=== PATIENT | female | born 1955 | race Caucasian/White ===

== ENCOUNTER 2018-01-09 07:02 | Day surgery (SDC) | payer BC ==
[~2018-01-09 07:02] MED LIST: Cefuroxime 10 MG/ML SYRINGE EYELF SCH; Lidocaine 1% PF 2 ML SDV INJECT SCH; Pilocarpine 4% Ophth Soln 15 ML Bot EYELF SCH; Polymyxin B/Trimethoprim 10 ML Bottle EYELF SCH
[2018-01-09] MEDS: Ofloxacin 0.3% Ophth Soln 5 ML Bottle EYELF SCH ×3 (07:28→08:56)
[2018-01-09] MEDS: Brimonidine 0.2% Ophth Soln 5 ML Bottle EYELF SCH ×3 (07:33→08:56)
[2018-01-09] MEDS: Phenylephrine 2.5% Ophth Soln 2 ML Bot EYELF SCH ×6 (07:38→08:39)
--- NOTE | 2018-01-09 07:40 | PCM.PREANE ---
Preanesthetic Assessment - Anesthesia/Transfusion/Family Hx Anesthesia History: Prior Anesthesia Reaction Family History of Anesthesia Reaction: No Transfusion History: No Prior Transfusion(s) Type of Transfusion Reactions: Reports: Unknown - Review of Systems General: No Symptoms Pulmonary: No Symptoms Cardiovascular: Dyspnea on Exertion Gastrointestinal: No Symptoms Neurological: No Symptoms Other: Reports: Diabetes, Anxiety - Physical Assessment NPO Status Date: 01/08/18 NPO Status Time: 00:00 Pulse: 68 O2 Sat by Pulse Oximetry: 94 Respiratory Rate: 16 Blood Pressure: 139/81 Temperature: 36.8 C Height: 1.6 m Weight: 97.522 kg ASA Class: 2 Mental Status: Alert & Oriented x3 Airway Class: Mallampati = 3 Dentition: Reports: Normal Dentition Thyro-Mental Finger Breadths: 2 Mouth Opening Finger Breadths: 2 ROM/Head Extension: Full Lungs: Clear to Auscultation, Normal Respiratory Effort Cardiovascular: Regular Rate, Regular Rhythm - Allergies Allergies/Adverse Reactions: Allergies Allergy/AdvReac Type Severity Reaction Status Date / Time clindamycin Allergy Hives Verified 01/08/18 13:12 - Blood Blood Available: No Product(s) Available: None - Anesthesia Plan Pre-Op Medication Ordered: None - Acknowledgements Anesthesia Type Planned: MAC Pt an Appropriate Candidate for the Planned Anesthesia: Yes Alternatives and Risks of Anesthesia Discussed w Pt/Guardian: Yes Pt/Guardian Understands and Agrees with Anesthesia Plan: Yes PreAnesthesia Questionnaire Other HEENT History: glasses Respiratory History: Reports: Asthma Gastrointestinal History: Reports: GERD Other Genitourinary History: surgery on bladder a long time ago Other OB/BYN History: menopausal facial flushing Neurological History: Reports: Migraines Other Neuro History: insomnia Other Psychiatric History: INSOMNIA Endocrine/Metabolic History: Reports: Diabetes, Type II Other Dermatologic History: verruca vulgaris, multiple benign melanocytic nevi, neoplasm of skin, senile angiomas, skin tags, seborrhecic keratosis, sebaceous hyperplasia, lentigo - Past Surgical History GI Surgical History: Reports: Hernia Repair/Other Musculoskeletal Surgical History: Reports: Knee Replacement - HOME MEDS Home Medications: Home Meds Budesonide/Formoterol [Symbicort 160-4.5 Mcg Inhaler] 10.2 gm IH BEDTIME [History] Esomeprazole [NexIUM] 40 mg PO DAILY 06/05/16 [History] Losartan/Hydrochlorothiazide [Losartan-HCTZ 50-12.5 MG] 1 tab PO DAILY 06/05/16 [History] Montelukast [Singulair] 10 mg PO DAILY 06/05/16 [History] Rosuvastatin [Crestor] 1 tab PO DAILY 06/05/16 [History] Sulfamethoxazole/Trimethoprim [Bactrim Ds Tablet] 1 tab PO DAILY 06/05/16 [ History] metFORMIN [Glucophage XR] 500 mg PO BID 06/05/16 [History] Nitrofurantoin Monohyd/M-Cryst [Macrobid 100 mg Capsule] 100 mg PO DAILY [History] - CURRENT (IN HOUSE) MEDS Current Meds: Current Medications Brimonidine Tartrate (Alphagan 0.2% Ophth Soln) 0 ml EYELF ASDIRECTED EMELIA Stop: 01/09/18 18:00 Cefuroxime Sodium (Zinacef) 0 mg EYELF ASDIRECTED EMELIA Stop: 01/09/18 18:00 Lidocaine HCl (Xylocaine-Mpf 1%) 0 ml INJECT ASDIRECTED EMELIA Stop: 01/09/18 18:00 Ofloxacin (Ocuflox 0.3% Ophth Soln) 0 ml EYELF ASDIRECTED EMELIA Stop: 01/09/18 18:00 Phenylephrine HCl (Karson-Synephrine 2.5% Ophth Soln) 0 ml EYELF ASDIRECTED EMELIA Stop: 01/09/18 18:00 Pilocarpine HCl (Pilocar 4% Ophth Soln) 0 ml EYELF ASDIRECTED EMELIA Stop: 01/09/18 18:00 Tetracaine HCl (Tetracaine 0.5% Steri-Unit Teri) 0 ml EYELF ASDIRECTED EMELIA Stop: 01/09/18 18:00 Tropicamide (Mydriacyl 1% Ophth Soln) 0 ml EYELF ASDIRECTED EMELIA Stop: 01/09/18 18:00
[2018-01-09] MEDS: Tropicamide 1% Ophth Soln 15 ML Bottle EYELF SCH ×3 (07:50→08:14)
[2018-01-09] MEDS: Tetracaine HCl/PF 0.5% 4 ML Bottle EYELF SCH ×2 (08:20→08:46)
--- NOTE | 2018-01-09 09:04 | PCM48HPAN ---
Post Anesthesia Note - EVALUATION WITHIN 48HRS OF ANESTHETIC Vital Signs in Normal Range: Yes Patient Participated in Evaluation: Yes Respiratory Function Stable: Yes Airway Patent: Yes Cardiovascular Function Stable: Yes Hydration Status Stable: Yes Pain Control Satisfactory: Yes Nausea and Vomiting Control Satisfactory: Yes Mental Status Recovered: Yes Pulse Rate: 68 Resp Rate: 16 Temperature: 36.8 C Blood Pressure: 139/81 - COMMENTS/OBSERVATIONS Free Text/Narrative:: no anesthesia complications noted
[2018-01-09 09:21] VITALS: BP 155/90
== END 2018-01-09 09:10 | disposition home or self-care (01) ==
LOC: JD.SDS 07:02
PROVIDERS: ATTEND Ophthalmology
DX: H25.813 Combined forms of age-related cataract, bilateral (principal); E11.36 Type 2 diabetes mellitus with diabetic cataract; H35.343 Macular cyst, hole, or pseudohole, bilateral; H35.073 Retinal telangiectasis, bilateral; H02.831 Dermatochalasis of right upper eyelid; H16.103 Unspecified superficial keratitis, bilateral; H16.223 Keratoconjunctivitis sicca, not specified as Sjogren's, bilateral; J45.909 Unspecified asthma, uncomplicated; K21.9 Gastro-esophageal reflux disease without esophagitis; G43.909 Migraine, unspecified, not intractable, without status migrainosus; G47.00 Insomnia, unspecified; E78.00 Pure hypercholesterolemia, unspecified; M19.90 Unspecified osteoarthritis, unspecified site; I10 Essential (primary) hypertension; Z79.84 Long term (current) use of oral hypoglycemic drugs; Z79.899 Other long term (current) drug therapy; Z88.1 Allergy status to other antibiotic agents
CPT/HCPCS: 66984; C1780; J0697; A9270-GY; J2001

== ENCOUNTER 2021-02-04 08:22 | Emergency (ER) | payer OTHER ==
[2021-02-04 08:31] VITALS: BP 160/84; PULSE 76
--- NOTE | 2021-02-04 08:44 | EDM.PDOC ---
ED HPI GENERAL MEDICAL PROBLEM - General Chief Complaint: Abdominal Pain Stated Complaint: ABDOMINAL PAIN Time Seen by Provider: 02/04/21 08:40 Source of Information: Reports: Patient History Limitations: Reports: No Limitations - History of Present Illness INITIAL COMMENTS - FREE TEXT/NARRATIVE: 65-year-old female presents to the ED for evaluation of worsening left lower quadrant abdominal pain. She states she was diagnosed with diverticulitis of the sigmoid colon on January 29. Initially was seen at the walk-in clinic where labs revealed an elevated white count and apparently CRP. She was sent to the ED where she had a CT of the abdomen and pelvis performed with oral and IV contrast and confirmed diagnosis of diverticulitis. She was treated with oral Augmentin 875/1 2 5 mg tablets twice daily for 1 week and she has 2 tablets left. No noted fever or chills. Gradually worsening pain left lower quadrant worse with moving coughing getting in and out of bed etc. No problems voiding. Stools have been soft and normal without blood. She reports she is usually constipated but does not have diarrhea from the Augmentin. She has a history of diverticulitis with at least 1 previous event several years ago. I have reviewed CT scan that was done at our hospital on the January 29. She has numerous diverticuli within the sigmoid colon. There was inflammatory change being seen around these diverticuli compatible with diverticulitis. No focal fluid collections were seen to indicate an abscess. Visualized lung bases show nothing acute. Liver contains no focal parenchymal abnormality. Spleen size was normal.'s prior stomach surgery identified. Small to moderate size hiatal hernia is also appreciated. Adrenal glands show no nodules. Pancreas shows no discrete abnormality surgical clips are noted from previous cholecystectomy. Abdominal aorta shows mild atherosclerotic calcification without aneurysm. No retroperitoneal adenopathy is seen. Kidneys show symmetric contrast enhancement. 3 very small cortical cysts are seen within the left kidney. Small abnormality which appears to be solid is seen within the left kidney measuring 9 mm. Delayed images show contrast excretion to both ureters as well as the bladder. Fat-containing anterior abdominal wall hernia is seen superiorly. Directly below the hernia there is evidence of graft material within the anterior abdominal wall appendix was not visualized. Onset: Gradual Onset Date: 01/27/21 Duration: Day(s):, Getting Worse (Was improving but became worse left lower quadrant over the last 2 days in spite of antibiotic therapy with Augmentin 875/1 two 5 mg twice daily for the last 6 days.) Location: Reports: Abdomen (Left lower quadrant of the abdomen with no radiation into her back) Quality: Reports: Ache, Other (Occasionally sharp and stabbing) Severity: Moderate Improves with: Reports: Rest Worsens with: Reports: Other (Worse with walking) Context: Reports: Other (Diagnosed with diverticulitis sigmoid colon on January 29.). Denies: Activity ( getting in and every vehicle or bed.), Exercise, Lifting, Sick Contact, Trauma Associated Symptoms: Denies: Confusion, Chest Pain, Cough, cough w sputum, Diaphoresis, Fever/Chills, Headaches, Loss of Appetite, Malaise, Nausea/Vomiting, Rash, Seizure, Shortness of Breath, Syncope, Weakness Treatments [employer]: Reports: Acetaminophen Left Lower Abdominal Pain Score (Numeric/FACES): 7 - Related Data Allergies Allergy/AdvReac Type Severity Reaction Status Date / Time clindamycin Allergy Hives Verified 02/04/21 08:31 Home Meds: Home Meds Montelukast [Singulair] 10 mg PO DAILY 06/05/16 [History] Rosuvastatin [Crestor] 1 tab PO DAILY 06/05/16 [History] Levofloxacin [Levaquin] 500 mg PO DAILY #7 tablet 02/04/21 [Rx] metroNIDAZOLE [Flagyl] 500 mg PO Q8H #21 tab 02/04/21 [Rx] Past Medical History Other HEENT History: glasses Cardiovascular History: Reports: High Cholesterol Respiratory History: Reports: Asthma Gastrointestinal History: Reports: GERD Other Genitourinary History: surgery on bladder a long time ago Other TARIFF COUNSEL History: menopausal facial flushing Neurological History: Reports: Migraines Other Neuro History: insomnia Other Psychiatric History: INSOMNIA Endocrine/Metabolic History: Reports: Diabetes, Type II Other Dermatologic History: verruca vulgaris, multiple benign melanocytic nevi, neoplasm of skin, senile angiomas, skin tags, seborrhecic keratosis, sebaceous hyperplasia, lentigo - Past Surgical History GI Surgical History: Reports: Hernia Repair/Other Musculoskeletal Surgical History: Reports: Knee Replacement Social & Family History - Caffeine Use Caffeine Use: Reports: None - Living Situation & Occupation Living situation: Reports: Occupation: Employed ED ROS GENERAL - Review of Systems Review Of Systems: See Below Constitutional: Reports: Decreased Appetite. Denies: Fever, Chills, Malaise, Weakness, Fatigue, Weight Loss HEENT: Reports: Glasses, Other (Chronic allergic rhinitis) Respiratory: Reports: No Symptoms Cardiovascular: Reports: No Symptoms Endocrine: Reports: Fatigue GI/Abdominal: Reports: Abdominal Pain, Constipation (See history of present illness intermittent problems with constipation). Denies: Nausea : Reports: Frequency, Incontinence (Occasional stress-induced) Musculoskeletal: Reports: Neck Pain (Occasional neck and shoulder pain), Back Pain, Joint Pain Skin: Reports: No Symptoms Neurological: Reports: No Symptoms Psychiatric: Reports: No Symptoms Hematologic/Lymphatic: Reports: No Symptoms Immunologic: Reports: No Symptoms ED EXAM, GI/ABD - Physical Exam Exam: See Below Exam Limited By: No Limitations General Appearance: Alert, WD/WN, No Apparent Distress, Other (Temperature is 36.9 degrees with a heart rate of 76 and sinus respiratory to 16 with O2 sats of 98% room air. BP 160/84.) Eyes: Bilateral: Normal Appearance (No scleral icterus or blepharal pallor.) Throat/Mouth: Normal Inspection, Normal Lips, Normal Oropharynx Head: Atraumatic, Normocephalic Neck: Normal Inspection, Supple, Non-Tender, Full Range of Motion. No: Carotid Bruit, Lymphadenopathy (L), Lymphadenopathy (R) Respiratory/Chest: No Respiratory Distress, Lungs Clear, Normal Breath Sounds, No Accessory Muscle Use Cardiovascular: Normal Peripheral Pulses, Regular Rate, Rhythm, No Edema, No Gallop, No Murmur, No Rub GI/Abdominal Exam: Normal Bowel Sounds, Soft, Guarding (Just to the left of), Rebound ( midline suprapubically and left lower quadrant of the abdomen), Tender (Very tender to palpation left lower quadrant over the sigmoid colon with guarding and mild rebound tenderness.), Hernia (Has a ventral hernia.), Other (Multiple scars. She has had a Cuate fundoplication. She has had a laparoscopic assisted cholecystectomy. She has had 3 6 C-sections done in the classical scars with abdominal wall hernia.). No: Non-Tender, Rigid Back Exam: Normal Inspection, Other. No: CVA Tenderness (L) (Increased lordotic curvature lumbar spine), CVA Tenderness (R) Extremities: Normal Inspection, Normal Range of Motion, Non-Tender, No Pedal Edema Neurological: Alert, Oriented, CN II-XII Intact, Normal Cognition Psychiatric: Normal Affect, Normal Mood Skin Exam: Warm, Dry, Intact, Normal Color, No Rash Course - Vital Signs Last Recorded V/S: Last Vital Signs Temp 36.9 C 02/04/21 08:29 Pulse 76 02/04/21 08:29 Resp 16 02/04/21 08:29 BP 160/84 H 02/04/21 08:29 Pulse Ox 98 02/04/21 08:29 - Orders/Labs/Meds Orders: Active Orders 24 hr Category Date Time Status Ketorolac [Toradol] Med 02/04/21 10:30 Active 30 mg IVPUSH ONETIME Sodium Chloride 0.9% [Normal Saline] 1,000 ml Med 02/04/21 09:00 Active IV ASDIRECTED Medication Orders Sodium Chloride (Normal Saline) 1,000 mls @ 125 mls/hr IV ASDIRECTED EMELIA Last Admin: 02/04/21 09:05 Dose: 125 mls/hr Documented by: SHAD Ketorolac Tromethamine (Ketorolac 30 Mg/Ml Sdv) 30 mg IVPUSH ONETIME EMELIA Labs: Laboratory Tests 02/04/21 02/04/21 02/04/21 Range/Units 09:13 09:13 09:13 WBC 7.32 (3.98-10.04) K/mm3 RBC 4.40 (3.98-5.22) M/mm3 Hgb 13.5 (11.2-15.7) gm/dl Hct 41.2 (34.1-44.9) % MCV 93.6 D (79.4-94.8) fl MCH 30.7 (25.6-32.2) pg MCHC 32.8 (32.2-35.5) g/dl RDW Std Deviation 42.1 (36.4-46.3) fL Plt Count 314 (182-369) K/mm3 MPV 9.2 L (9.4-12.3) fl Neut % (Auto) 54.4 (34.0-71.1) % Lymph % (Auto) 29.8 (19.3-51.7) % [place] % (Auto) 13.5 H (4.7-12.5) % Eos % (Auto) 1.2 (0.7-5.8) Baso % (Auto) 0.4 (0.1-1.2) % Neut # (Auto) 3.98 (1.56-6.13) K/mm3 Lymph # (Auto) 2.18 (1.18-3.74) K/mm3 [place] # (Auto) 0.99 H (0.24-0.36) K/mm3 Eos # (Auto) 0.09 (0.04-0.36) K/mm3 Baso # (Auto) 0.03 (0.01-0.08) K/mm3 Sodium 142 (136-145) mEq/L Potassium 4.0 (3.5-5.1) mEq/L Chloride 110 H (98-107) mEq/L Carbon Dioxide 28 (21-32) mEq/L Anion Gap 8.0 (5-15) BUN 9 (7-18) mg/dL Creatinine 0.8 (0.55-1.02) mg/dL Est Cr Clr Drug Dosing 59.54 mL/min Estimated GFR (MDRD) > 60 (>60) mL/min BUN/Creatinine Ratio 11.3 L (14-18) Glucose 103 H (70-99) mg/dL Lactic Acid 1.2 (0.4-2.0) mmol/L Calcium 8.8 (8.5-10.1) mg/dL Magnesium 1.9 (1.8-2.4) mg/dL Total Bilirubin 0.3 (0.2-1.0) mg/dL AST 25 (15-37) U/L ALT 34 (14-59) U/L Alkaline Phosphatase 65 (46-116) U/L C-Reactive Protein < 0.2 (<1.0) mg/dL Total Protein 6.4 (6.4-8.2) g/dl Albumin 2.9 L (3.4-5.0) g/dl Globulin 3.5 gm/dL Albumin/Globulin Ratio 0.8 L (1-2) Urine Color (Yellow) Urine Appearance (Clear) Urine pH (5.0-8.0) Ur Specific [place] (1.005-1.030) Urine Protein (Negative) Urine Glucose (UA) (Negative) Urine Ketones (Negative) Urine Occult Blood (Negative) Urine Nitrite (Negative) Urine Bilirubin (Negative) Urine Urobilinogen (0.2-1.0) Ur Leukocyte Esterase (Negative) Urine RBC (0-5) /hpf Urine WBC (0-5) /hpf Ur Squamous Epith Cells (0-5) /hpf Urine Bacteria (FEW) /hpf Urine Mucus (FEW) /hpf 02/04/21 Range/Units 09:28 WBC (3.98-10.04) K/mm3 RBC (3.98-5.22) M/mm3 Hgb (11.2-15.7) gm/dl Hct (34.1-44.9) % MCV (79.4-94.8) fl MCH (25.6-32.2) pg MCHC (32.2-35.5) g/dl RDW Std Deviation (36.4-46.3) fL Plt Count (182-369) K/mm3 MPV (9.4-12.3) fl Neut % (Auto) (34.0-71.1) % Lymph % (Auto) (19.3-51.7) % [place] % (Auto) (4.7-12.5) % Eos % (Auto) (0.7-5.8) Baso % (Auto) (0.1-1.2) % Neut # (Auto) (1.56-6.13) K/mm3 Lymph # (Auto) (1.18-3.74) K/mm3 [place] # (Auto) (0.24-0.36) K/mm3 Eos # (Auto) (0.04-0.36) K/mm3 Baso # (Auto) (0.01-0.08) K/mm3 Sodium (136-145) mEq/L Potassium (3.5-5.1) mEq/L Chloride (98-107) mEq/L Carbon Dioxide (21-32) mEq/L Anion Gap (5-15) BUN (7-18) mg/dL Creatinine (0.55-1.02) mg/dL Est Cr Clr Drug Dosing mL/min Estimated GFR (MDRD) (>60) mL/min BUN/Creatinine Ratio (14-18) Glucose (70-99) mg/dL Lactic Acid (0.4-2.0) mmol/L Calcium (8.5-10.1) mg/dL Magnesium (1.8-2.4) mg/dL Total Bilirubin (0.2-1.0) mg/dL AST (15-37) U/L ALT (14-59) U/L Alkaline Phosphatase (46-116) U/L C-Reactive Protein (<1.0) mg/dL Total Protein (6.4-8.2) g/dl Albumin (3.4-5.0) g/dl Globulin gm/dL Albumin/Globulin Ratio (1-2) Urine Color Light yellow (Yellow) Urine Appearance Clear (Clear) Urine pH 7.0 (5.0-8.0) Ur Specific [place] 1.020 (1.005-1.030) Urine Protein Negative (Negative) Urine Glucose (UA) Negative (Negative) Urine Ketones Negative (Negative) Urine Occult Blood Negative (Negative) Urine Nitrite Negative (Negative) Urine Bilirubin Negative (Negative) Urine Urobilinogen 1.0 (0.2-1.0) Ur Leukocyte Esterase Negative (Negative) Urine RBC 0-5 (0-5) /hpf Urine WBC 0-5 (0-5) /hpf Ur Squamous Epith Cells 0-5 (0-5) /hpf Urine Bacteria Few (FEW) /hpf Urine Mucus Few (FEW) /hpf Meds: Medications Generic Name Dose Route Start Last Admin Trade Name Freq PRN Reason Stop Dose Admin Sodium Chloride 1,000 mls @ 125 mls/hr 02/04/21 09:00 02/04/21 09:05 Normal Saline IV 125 mls/hr ASDIRECTED EMELIA Administration Ketorolac Tromethamine 30 mg 02/04/21 10:30 Ketorolac 30 Mg/Ml Sdv IVPUSH ONETIME EMELIA Discontinued Medications Generic Name Dose Route Start Last Admin Trade Name Freq PRN Reason Stop Dose Admin Levofloxacin/Dextrose 750 mg/ 150 mls @ 100 mls/hr 02/04/21 09:48 02/04/21 09:52 Premix IV 02/04/21 11:17 100 mls/hr ONETIME ONE Administration - Radiology Interpretation Free Text/Narrative:: 65-year-old female presents to the ED for evaluation of worsening left lower quadrant abdominal pain. She was seen by Natividad Gentile at the [facility] last Monday, January 29. Apparently labs revealed an elevated white count and CRP. She had a CT scan done to our hospital which confirmed evidence of sigmoid diverticulitis with no abscess and multiple diverticuli of the sigmoid colon. Patient has been treated with Augmentin 8 7 5/125 mg tablets twice daily since that time and has been compliant with medication. She states pain eased up after 3 days of medication but after 2 days pain started to come back and is gradually worsening over the last 48 hours. Decreased appetite but no nausea or vomiting. Stools have been soft without blood. Pain is worsened by coughing and getting in and out of bed getting out of the vehicle etc. Exam reveals tenderness with peritoneal irritation left lower quadrant of the abdomen over the sigmoid colon. Plan repeat labs without blood cultures as she is afebrile. We will repeat CT scan of the abdomen without contrast. - Re-Assessments/Exams Free Text/Narrative Re-Assessment/Exam: 02/04/21 09:49 Hematology reveals a normal white count 7.32 with 54% neutrophils and no bands cells. Hemoglobin is 13.5 with hematocrit of 41.2 platelet count 314,000 lactic acid is 1.2. CT scan of the abdomen and pelvis has been completed without any contrast today. It reveals a mild hiatal hiatal hernia with evidence of previous Cuate fundoplication surgery. Liver appears homogeneous and is slightly enlarged due to steatosis. Gallbladder is absent. Pancreas appears normal adrenal glands appear normal cysts are present within the left kidney with slight increase in the renal pelvis on the left side. There is a fair amount of stool throughout the right hemicolon and transverse colon. There is an area of diverticulitis along the descending colon and sigmoid colon with diffuse inflammation without any abscess formation evident. Many of the diverticuli throughout the sigmoid colon and descending colon still contain contrast from CT exam performed January 29. Uterus is absent. It appears that the diverticulitis is just not responding well to Augmentin therapy. Plan we will give her Levaquin 750 mg IV now. Flagyl 500 mg 3 times daily for the next week with Levaquin 500 mg once daily for 8 days. She will discontinue Augmentin therapy 02/04/21 10:09 Sodium is 142 with a potassium of 4.0. Chloride is 110 with a bicarb of 28. Anion gap is 8.0. BUN is 9 with a creatinine of 0.8 and a GFR greater than 60. Glucose is 103. Lactic acid is 1.2. Calcium is 8.8 with a magnesium of 1.9. Liver function is normal C-reactive protein is less than 0.2 total protein 6.4 with an albumin fraction slightly low at 2.9 urinalysis is completely normal. 02/04/21 10:28 radiologist over read of the CT of the abdomen is now available. Numerous diverticuli are seen within the sigmoid colon and descending colon. Amount of inflammatory changes seen previously has diminished. There are no areas of fluid seen to indicate a discrete diverticular abscess at this time anterior fat-containing abdominal wall hernia is noted which is stable from previous exam. Additional graft material is seen within the more inferior abdominal wall. Kidneys show a nonobstructing stone within the left side measuring about 4.6 mm. Right kidney shows no abnormal calcifications extrarenal pelvis ease are noted on both sides. No ureteral dilatation or ureteral stone is seen. Kidneys show no additional abnormality but were better seen on the previous contrast exam. No retroperitoneal adenopathy or mesenteric abnormalities are seen. Abdominal aorta shows no aneurysm with mild atheros clerotic calcification pelvis shows no adenopathy but multiple phleboliths. Bone window settings were reviewed which show mild scattered degenerative change within the lumbar spine. Patient is still having pain in her left lower quadrant. We will give her Toradol 30 mg IV for pain relief since she will be driving a motor vehicle this afternoon. 02/04/21 11:32 patient has completed Levaquin infusion. She will be discharged home on Levaquin 500 mg tablet orally for 8 days and Flagyl 500 mg 3 times daily for 7 days. Follow-up with personal care provider in 7 days time Departure - Departure Time of Disposition: 11:33 Disposition: Home, Self-Care 01 Condition: Fair Clinical Impression: Diverticulitis of sigmoid colon - Discharge Information *PRESCRIPTION DRUG MONITORING PROGRAM REVIEWED*: Not Applicable *COPY OF PRESCRIPTION DRUG MONITORING REPORT IN PATIENT ELVIS: Not Applicable Prescriptions: metroNIDAZOLE [Flagyl] 500 mg PO Q8H #21 tab Levofloxacin [Levaquin] 500 mg PO DAILY #7 tablet Referrals: Yee Arita CHRISTMAS BELL RINGER [Primary Care Provider] - Forms: ED Department Discharge Additional Instructions: Evaluation in the emergency room today in regards to recurrence of left lower quadrant abdominal pain. Diagnosis of diverticulitis made by CT scan on Monday, January 29. You were treated with Augmentin tablets 875/125mg tablets which did seem to be helping up until a few days ago when the abdominal pain started to become worse again. Examination reveals significant tenderness to light palpation left lower quadrant of the abdomen. Repeat CT scan again was performed without contrast this morning and reveals evidence of persistent diverticulitis surrounding the lower descending colon and sigmoid colon left lower quadrant of the abdomen. There was no abscess formation at this time. It appears that the Augmentin is just not clearing up the infection adequately. Therefore you were given IV antibiotic Levaquin 750 mg which will last for 24 hours. You will need to continue this medication in a tablet form 500 mg once daily every morning for the next 7 days as well as antibiotic Flagyl 500 mg 3 times daily for the next 7 days as well. This medication should usually be taken with food in the stomach as it can make you nauseated otherwise. It is okay to take Tylenol 650 mg every 4 hours or Aleve 2 tablets every 8 hours for pain relief. Pain left lower quadrant of the abdomen should start to feel markedly improved over the next 48 to 72 hours. Other reasons for further medical follow-up would be development of fever chills or nausea vomiting. Sepsis Event Note (ED) - Evaluation Sepsis Screening Result: No Definite Risk - Focused Exam Vital Signs: Vital Signs Temp Pulse Resp BP Pulse Ox 02/04/21 08:29 36.9 C 76 16 160/84 H 98 - My Orders Last 24 Hours: My Active Orders 02/04/21 09:00 Sodium Chloride 0.9% [Normal Saline] 1,000 ml IV ASDIRECTED 02/04/21 10:30 Ketorolac [Toradol] 30 mg IVPUSH ONETIME - Assessment/Plan Last 24 Hours: My Active Orders 02/04/21 09:00 Sodium Chloride 0.9% [Normal Saline] 1,000 ml IV ASDIRECTED 02/04/21 10:30 Ketorolac [Toradol] 30 mg IVPUSH ONETIME
[2021-02-04] MEDS ORDERED: Sodium Chloride 0.9% 1,000 ML IV SCH (09:00)
[2021-02-04] MEDS ORDERED: Levofloxacin/Dextrose 5%-Water 750 MG in Premix Bag 1 BAG IV ONE (09:48)
--- NOTE | 2021-02-04 10:15 | CT ---
CT abdomen and pelvis Technique: Multiple axial sections were obtained from above the dome of the diaphragm inferiorly through the pubic symphysis. Intravenous contrast was not utilized. Oral contrast has been given. Reconstructed coronal and sagittal images were obtained. Comparison: Prior abdomen and pelvis CTs of 01/29/21 and 12/18/15 are available. Findings: Numerous diverticuli are seen within the sigmoid colon and descending colon. Amount of inflammatory change seen previously has diminished. There are no areas of fluid seen to indicate a discrete diverticular abscess. Visualized lung bases show nothing acute. Noncontrast appearance of the liver shows no discrete abnormality. Small to moderate size hiatal hernia is noted. Prior stomach surgery is seen. Anterior fat containing abdominal wall hernia is noted which is stable. Additional graft material is seen within the more inferior abdominal wall. Kidneys show a nonobstructing stone within the left side measuring about 4.6 mm. Right kidney shows no abnormal calcifications. Extrarenal pelvises are noted on both sides. No ureteral dilatation or ureteral stone is seen. Kidneys show no additional abnormality but were better seen on the previous contrast exam. Pancreas appears within normal limits. Surgical clips are noted from prior cholecystectomy. Abdominal aorta shows no aneurysm with mild atherosclerotic calcification. No retroperitoneal adenopathy or mesenteric abnormalities are seen. Pelvis shows no adenopathy. Bone window settings were reviewed which show mild scattered degenerative change within the spine. Impression: 1. Diverticuli within the descending and sigmoid regions. Diverticulitis was mildly improved from prior exam. No diverticular abscess is seen. 2. Other findings as described above which are stable from prior CT exam. No other acute abnormality is identified. Diagnostic code #3
[2021-02-04] MEDS ORDERED: Ketorolac 30 MG/ML SDV IVPUSH SCH (10:30)
== END 2021-02-04 11:46 | disposition home or self-care (01) ==
LOC: JD.ED 08:22
DX: K57.32 Diverticulitis of large intestine without perforation or abscess without bleeding (principal); E78.00 Pure hypercholesterolemia, unspecified; J45.909 Unspecified asthma, uncomplicated; E11.9 Type 2 diabetes mellitus without complications; Z88.1 Allergy status to other antibiotic agents; Z79.899 Other long term (current) drug therapy
CPT/HCPCS: 36415; 74176; 80053; 81001; 83605; 83735; 85025; 86140; 96365; 96366; 96375; 99284; J1885; J1956; J7030

== ENCOUNTER 2021-10-12 20:01 | Inpatient (IN) | payer BC ==
[2021-10-12] MEDS ORDERED: Lactated Ringers 1,000 ML IV ONE ×2 (20:24→21:57)
[2021-10-12] MEDS ORDERED: Morphine 4 MG/ML Syringe IVPUSH ONE ×2 (20:34→21:53)
[2021-10-12] MEDS ORDERED: Ondansetron 4 MG/2 ML SDV IVPUSH ONE (20:34)
[2021-10-12] MEDS ORDERED: Iopamidol 612 MG/ML 100 ML Bottle IVPUSH ONE (20:57)
[2021-10-12] MEDS ORDERED: Iopamidol 612 MG/ML 50 ML SDV IVPUSH ONE (20:58)
[2021-10-12] MEDS ORDERED: Sodium Chloride 0.9% 10 ML Syringe FLUSH PRN (21:16)
[2021-10-12] MEDS ORDERED: Piperacillin/Tazobactam 4.5 GM in Sodium Chloride 0.9% 100 ML IV ONE (21:57)
[2021-10-12] MEDS ORDERED: Lactated Ringers 1,000 ML IV SCH (23:45)
[2021-10-13] MEDS: Ondansetron 4 MG/2 ML SDV IVPUSH PRN ×6 (00:27→20:38)
[2021-10-13] MEDS: Morphine 4 MG/ML Syringe IVPUSH PRN ×2 (00:28→04:24)
[2021-10-13] MEDS: Piperacillin/Tazobactam 4.5 GM in Sodium Chloride 0.9% 100 ML IV SCH ×3 (04:16→20:09)
[2021-10-13] MEDS ORDERED: HYDROmorphone 0.5 MG/0.5 ML Syringe IVPUSH PRN (07:51)
[2021-10-13] MEDS: Enoxaparin 40 MG/0.4 ML Syringe SUBCUT SCH (08:32)
[2021-10-13] MEDS: HYDROmorphone 1 MG/ML Syringe IVPUSH PRN ×3 (12:36→20:38)
[2021-10-13] MEDS: Nystatin Susp 100,000 Unit/ML 5 ML Oral Syringe PO SCH ×2 (14:43→20:13)
[2021-10-13] MEDS: Lactated Ringers 1,000 ML IV SCH (23:39)
[2021-10-14] MEDS: HYDROmorphone 1 MG/ML Syringe IVPUSH PRN ×4 (00:43→21:08)
[2021-10-14] MEDS: Ondansetron 4 MG/2 ML SDV IVPUSH PRN ×2 (00:43→06:10)
[2021-10-14] MEDS: Piperacillin/Tazobactam 4.5 GM in Sodium Chloride 0.9% 100 ML IV SCH ×3 (03:17→20:21)
[2021-10-14] MEDS: Enoxaparin 40 MG/0.4 ML Syringe SUBCUT SCH (08:57)
[2021-10-14] MEDS: Nystatin Susp 100,000 Unit/ML 5 ML Oral Syringe PO SCH ×3 (08:58→20:22)
[2021-10-14] MEDS: Ondansetron 4 MG Tab.DIS PO PRN ×2 (13:23→20:22)
[2021-10-14] MEDS: Lactated Ringers 1,000 ML IV SCH (20:21)
[2021-10-15] MEDS: Lactated Ringers 1,000 ML IV SCH (00:23)
[2021-10-15] MEDS: Piperacillin/Tazobactam 4.5 GM in Sodium Chloride 0.9% 100 ML IV SCH ×2 (04:09→11:59)
[2021-10-15] MEDS: Enoxaparin 40 MG/0.4 ML Syringe SUBCUT SCH (08:50)
[2021-10-15] MEDS: Nystatin Susp 100,000 Unit/ML 5 ML Oral Syringe PO SCH (08:51)
[2021-10-15] MEDS: Ondansetron 4 MG Tab.DIS PO PRN (08:51)
[2021-10-15] MEDS: HYDROmorphone 1 MG/ML Syringe IVPUSH PRN (08:51)
[2021-10-15 11:54] VITALS: PULSE 64
[2021-10-15 11:55] VITALS: BP 130/78
== END 2021-10-15 13:56 | disposition home or self-care (01) | DRG 244 ==
LOC: JD.ED 20:01 → JD.MS 22:12
PROVIDERS: ADMIT Surgery; ATTEND Surgery
DX: K57.32 Diverticulitis of large intestine without perforation or abscess without bleeding (principal); H54.7 Unspecified visual loss; E78.00 Pure hypercholesterolemia, unspecified; I10 Essential (primary) hypertension; G47.30 Sleep apnea, unspecified; K59.09 Other constipation; K21.9 Gastro-esophageal reflux disease without esophagitis; K44.9 Diaphragmatic hernia without obstruction or gangrene; K58.9 Irritable bowel syndrome, unspecified; M19.90 Unspecified osteoarthritis, unspecified site; G43.909 Migraine, unspecified, not intractable, without status migrainosus; G47.00 Insomnia, unspecified; E11.9 Type 2 diabetes mellitus without complications; J30.9 Allergic rhinitis, unspecified; Z96.653 Presence of artificial knee joint, bilateral; L82.1 Other seborrheic keratosis; Z79.899 Other long term (current) drug therapy; Z98.84 Bariatric surgery status; Z86.010 Personal history of colon polyps; Z87.440 Personal history of urinary (tract) infections; Z88.1 Allergy status to other antibiotic agents; Z86.16 Personal history of COVID-19; Z86.19 Personal history of other infectious and parasitic diseases; Z90.89 Acquired absence of other organs; Z98.49 Cataract extraction status, unspecified eye; Z90.49 Acquired absence of other specified parts of digestive tract; Z98.890 Other specified postprocedural states
CPT/HCPCS: 36415; 74177; 74177-26; 80053; 81001; 82947; 83605; 83690; 85025; 85610; 87040; 96361; 96374; 96375; 96376; 99284; 99285-25; A9270-GY; J1170; J1650; J2270; J2405; J2543; J3490; J7120; Q9967

== ENCOUNTER 2022-11-14 03:29 | Emergency (ER) | payer BC ==
[2022-11-14 03:37] VITALS: BP 177/92; PULSE 63
== END 2022-11-14 04:55 | disposition home or self-care (01) ==
LOC: JD.ED 03:29
DX: J02.9 Acute pharyngitis, unspecified (principal); I10 Essential (primary) hypertension; J45.909 Unspecified asthma, uncomplicated; E11.9 Type 2 diabetes mellitus without complications; Z88.1 Allergy status to other antibiotic agents; Z86.16 Personal history of COVID-19
CPT/HCPCS: 87651-QW; 99283